=== PATIENT | male | born 2005 | race Caucasian/White ===

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

== ENCOUNTER 2023-05-07 03:18 | Emergency (ER) | payer OTHER ==
[~2023-05-07] VITALS: Ht 188 cm; Wt 76.2 kg
[2023-05-07 03:44] VITALS: BP 150/88
[2023-05-07 03:49] LABS: BASOPHILS ABSOLUTE AUTO 0.07 K/mm3 (0.00-0.23); BASOPHILS PERCENT AUTO 1 % (0-2); EOSINOPHILS ABSOLUTE AUTO 0.21 K/mm3 (0.00-0.68); EOSINOPHILS PERCENT AUTO 2 % (0-6); Hematocrit 46.9 % (37.0-53.0); Hemoglobin 15.3 g/dL (13.5-17.5); IMMATURE GRAN ABSOLUTE AUTO 0.02 K/mm3 (0.00-0.10); IMMATURE GRAN PERCENT AUTO 0 % (0-1); LYMPHOCYTES ABSOLUTE AUTO 4.14 K/mm3 (0.84-5.20); LYMPHOCYTES PERCENT AUTO 41 % (21-46); MONOCYTES ABSOLUTE AUTO 0.75 K/mm3 (0.16-1.47); MONOCYTES PERCENT AUTO 7 % (4-13); Mean Corpuscular HGB 30.2 pg (26.0-34.0); Mean Corpuscular HGB Conc 32.6 g/dL (31.5-36.5); Mean Corpuscular Volume 93 fL (80-100); Mean Platelet Volume 10.1 fL (9.1-12.4); NEUTROPHILS ABSOLUTE AUTO 5.02 K/mm3 (1.96-9.15); NEUTROPHILS PERCENT AUTO 49 % (41-73); Platelet Count 410 K/mm3 (150-400); RDW Coefficient Variation 12.6 % (11.7-14.2); Red Blood Cell Count 5.06 M/mm3 (4.30-5.90); White Blood Cell Count 10.21 K/mm3 (4.00-11.30)
[2023-05-07] MEDS ORDERED: ONDA4ODT MM (06:02)
[2023-05-07] MEDS ORDERED: TAMS.4ER PO (06:02)
[2023-05-07] MEDS ORDERED: IBUP800 PO (06:02)
[2023-05-07 06:08] LABS: Source, Urine Voided
[2023-05-07 06:14] LABS: Albumin, Blood 4.4 g/dL (3.4-5.0); Albumin/Globulin Ratio 1.3 (0.8-1.8); Bilirubin, Total 0.3 mg/dL (0.1-1.0); Bun/Creatinine Ratio 10.7 (12.0-20.0); Calcium, Blood 9.7 mg/dL (8.5-10.1); Creatinine, Blood 1.4 mg/dL (0.60-1.20); Globulin, Blood 3.3 g/dL (2.2-4.0); Potassium, Blood 4.3 mmol/L (3.5-5.5); Total Protein, Blood 7.7 g/dL (6.4-8.2)
[2023-05-07 06:30] LABS: Appearance, Urine Clear (Clear); Bilirubin, Urine Neg (Neg); Blood, Urine 5+ (Neg); Color, Urine Yellow (P-Yellow); Glucose Qualitative, Urine Neg (Neg); Ketones, Urine Neg (Neg); Leukocyte Esterase, Urine Neg (Neg); Nitrite, Urine Neg (Neg); Protein, Urine 1+ (Neg); Specific Gravity, Urine 1.015 (1.003-1.022); Urobilinogen, Urine NORM (Normal)
[2023-05-07 06:40] LABS: Calcium, Ionized (POC) 1.22 mmol/L (1.10-1.46); Chloride (POC) 104 mmol/L (98-108); Creatinine (POC) 1.5 mg/dL (0.8-1.3); Glucose (ISTAT POC) 106 mg/dL (70-99); Sodium (POC) 140 mmol/L (135-148); Total CO2 (POC) 27 mmol/L (21-32)
[2023-05-07 07:12] LABS: White Blood Cells, Urine Not Seen /hpf (0-5)
[2023-05-07 07:13] LABS: Bacteria Not Seen /hpf; Squamous Epithelial Cells Rare /hpf (Few)
== END 2023-05-07 07:42 | disposition home or self-care (01) ==
LOC: ER 03:18
PROVIDERS: Student in an Organized Health Care Education/Training Program
DX: N13.2 Hydronephrosis with renal and ureteral calculous obstruction (principal); N17.9 Acute kidney failure, unspecified
CPT/HCPCS: 74177; 80047; 80053; 81001; 83690; 85014; 85025; 96361; 96374-59; 96375; 99284-25; A9270; J1790; J1885; J2405; J7030; Q9967

== ENCOUNTER 2023-11-04 04:13 | Emergency (ER) | payer OTHER ==
[~2023-11-04] VITALS: Ht 185.4 cm; Wt 71.2 kg
[~2023-11-04 04:13] MED LIST changes: +IBUP800 PO; +ONDA4ODT MM; +TAMS.4ER PO
[2023-11-04 04:21] VITALS: BP 132/58
[2023-11-04] MEDS ORDERED: AMOX500 PO (05:15)
[2023-11-04 05:52] LABS: Influenza A, PCR NEGATIVE (NEGATIVE); Influenza B, PCR NEGATIVE (NEGATIVE); Resp Syncytial Virus, PCR NEGATIVE (NEGATIVE); SARS-Cov-2 (COVID-19) PCR, MMC NEGATIVE (NEGATIVE)
== END 2023-11-04 05:27 | disposition home or self-care (01) ==
LOC: ER 04:13
PROVIDERS: Emergency Medicine
DX: J02.0 Streptococcal pharyngitis (principal)
CPT/HCPCS: 0241U; 87430; 93005; 93010; 99283-25; A9270

== ENCOUNTER 2024-04-22 20:53 | Emergency (ER) | payer OTHER ==
[~2024-04-22] VITALS: Ht 188 cm; Wt 86.2 kg
[~2024-04-22 20:53] MED LIST changes: +AMOX500 PO
[2024-04-22 21:22] VITALS: BP 115/67
[2024-04-22] MEDS ORDERED: Cephalexin Monohydrate 500 MG Cap PO ONE (23:00)
[2024-04-22] MEDS ORDERED: CEPH500 PO ×2 (23:01→23:02)
== END 2024-04-22 23:05 | disposition home or self-care (01) ==
LOC: ER 20:53
DX: L60.0 Ingrowing nail (principal); L03.032 Cellulitis of left toe; H93.13 Tinnitus, bilateral; F17.290 Nicotine dependence, other tobacco product, uncomplicated
CPT/HCPCS: 10060; 99283-25; A9270